=== PATIENT | female | born 1935 | race Caucasian/White ===

== ENCOUNTER → 2016-12-25 | Outpatient (CLI) | payer MEDICARE, BC ==
[2016-12-25 18:00] LABS: Blood Urea Nitrogen 15 mg/dL (7-17); Non-African American GFR(MDRD) >60 (>60 ml/min/1.73 sqM)
--- NOTE | 2016-12-26 07:58 | CT ---
EXAMINATION TYPE: CT chest w con DATE OF EXAM: 12/25/2016 6:58 PM COMPARISON: Prior chest CT October 19, 2014 HISTORY: Lung nodule. CT DLP: 1093.80 mGycm. Automated Exposure Control for Dose Reduction was Utilized. TECHNIQUE: CT scan of the thorax is performed following with IV Contrast, patient injected with 100 mL of Omnipaque 300. FINDINGS: LUNGS: Mild to minimal underlying emphysematous change is present. There is linear scarring and/or at electatic change in both lower lungs, right greater than left most pronounced around the periphery. S ubcentimeter scarlike opacity medially left lung base is unchanged from prior exam and thus presumed postinflammatory in etiology. No new suspicious parenchymal nodule or mass is present bilaterally. No pleural effusion or pneumothorax is seen. Tracheobronchial tree is patent MEDIASTINUM: There are no greater than 1 cm hilar or mediastinal lymph nodes. No pericardial effusi on is seen. Heart size is stable and upper limits of normal with mild to moderate left atrial and le ft ventricular dilatation. There is mild to moderate mixed plaque in visualized portion of the aorta. Coronary artery calcification is present which is noted marker for coronary artery disease. OTHER: There is exaggerated thoracic kyphosis with multilevel spurring in the spine. Please refer to same day CT urogram report for complete details in the upper abdomen. IMPRESSION: Stable subcentimeter scarlike opacity medially left lung base. No new suspicious nodule o r mass.
--- NOTE | 2016-12-26 08:08 | CT ---
EXAMINATION TYPE: CT urogram wo/w con DATE OF EXAM: 12/25/2016 6:58 PM HISTORY: Microscopic hematuria. CT DLP: 1093.80mGycm Automated Exposure Control for Dose Reduction was Utilized. CONTRAST: CT scan of the abdomen and pelvis is performed without oral and without and with IV Contrast, patient injected with 100 mL of Omnipaque 300. Urogram protocol with Three-D reconstructed images created on independent workstation and reviewed. COMPARISON: CT abdomen January 16, 2012. FINDINGS: KUB: Noncontrast images show possible 1 mm calculus lower pole level left kidney only seen well on co bernie image 70 series 8. Postcontrast images show symmetric cortical medullary uptake and excretion f rom both kidneys without evidence of concerning solid or cystic renal mass or hydronephrosis seen nathaniel aterally. Visualized portion of both ureters show no suspicious calculi or filling defect. Occasional pelvic phlebolith is seen. Urinary bladder shows satisfactory distention without suspicious intralum inal mass or wall thickening. LUNG BASES: CTs refer to same day CT chest report for complete details LIVER/GB: Liver is isodense to slightly hypodense relative to spleen consistent with mild diffuse fat ty infiltration PANCREAS: No significant abnormality is seen. SPLEEN: No significant abnormality is seen. ADRENALS: No significant abnormality is seen. KIDNEYS: No significant abnormality is seen. BOWEL: Small size hiatal hernia is present. Some eccentric wall thickening at level of rectal anal ve rge involving left and posterior aspect is seen on axial image 80 series 11 and axial image 70 series 19. Overall evaluation bowel is suboptimal secondary to lack of enteric contrast. There is no suspic ious small or large bowel dilatation. Slightly more prominence of fecal material in the distal colon is consistent with mild to moderate distal colonic fecal stasis. Clinical correlation advised. There are some scattered colonic diverticula most pronounced in the sigmoid colon. There is no CT evidence for acute diverticulitis. UTERUS/ADNEXA: Uterus is likely surgically absent as is not visualized. Slightly prominent cervical r emnant noted. LYMPH NODES: No greater than 1cm abdominal or pelvic lymph nodes are appreciated. OSSEOUS STRUCTURES: There is been posterior decompression in the lower lumbar spine with laminectomy defects and spinous process resection. There is slight grade 1 anterolisthesis of L4 on L5. Posterior interpedicular rods and screws at this level are identified. OTHER: There is mild calcified plaque of aorta extending into branch vessels. IMPRESSION: 1. Suspect single 1 mm nonobstructing calculus lower pole level left kidney otherwise no significant finding is seen to account for patient's symptoms. 2. Attention to rectal anal verge, neoplasm at this level cannot be excluded, correlation with direct digital rectal exam and/or direct visualization is advised.
== END | disposition home or self-care (01) ==
LOC: RADCTMAIN 17:22
PROVIDERS: ATTEND Internal Medicine
DX: N20.0 Calculus of kidney (principal); R91.1 Solitary pulmonary nodule
CPT/HCPCS: 82565; 84520; 71260; 74178; 36415; 74400; Q9967

== ENCOUNTER → 2017-01-16 | Outpatient (CLI) | payer MEDICARE, BC ==
--- NOTE | 2017-01-20 12:34 | FL ---
EXAMINATION TYPE: FL barium enema DATE OF EXAM: 01/16/2017 COMPARISON: Correlation to CT 12/25/2016 HISTORY: 81-year-old female with history of diverticulitis, complaining of bleeding. Total fluoroscopy time: 3 minutes 24 seconds. TECHNIQUE: A double contrast barium enema study is performed. FINDINGS: Social Work Specialist view of the abdomen shows overall non-obstructive bowel gas pattern without significant stool. Posterior lumbar fusion hardware is present with laminectomy change. Degenerative changes at the left greater than right hips. The exam is limited given redundancy of the sigmoid colon limiting thorough visualization. There is a lso further limitation as we were unable to successfully drain adequate barium from the colon. Multip le attempts were made in different positions and further attempts were made with the patient attempti ng colonic evacuation privately for up to 20 minutes. Prominent air and contrast remained throughout the colon despite these attempts and even prior to air administration. However, we note relative collapse of the mid to distal sigmoid following filling and attempted drain age. Due to these limitations, this exam is reviewed in conjunction with CT of 12/25/2016. Air administration to distend the mid to distal sigmoid continues to show prominent sigmoid redundanc y and overlap limiting visualization. There is diffuse colonic diverticulosis, greatest within the si gmoid colon. Given the dense retained barium within the colon, no suspicious filling defect is identi fied within the visualized portions. IMPRESSION: 1. This exam is reviewed in conjunction with CT of 12/25/2016 due to marked limitations. The initially instilled barium contrast failed to evacuate despite prolonged attempts. 2. Given prominent retained contrast and air (even prior to administration of air contrast) with rian apse of the mid to distal sigmoid, a partial obstruction at the level of the mid sigmoid is suggested . This level is not well seen due to sigmoid redundancy and overlap. Clinical correlation is recommen ded. 3. As no clear mass is seen on the CT of 12/25/2016, additional differential consideration includes ch ronic narrowing and stricture from chronic diverticulitis. Consider surgical consultation. 4. There is diffuse colonic diverticulosis, greatest in the sigmoid colon.
== END | disposition home or self-care (01) ==
LOC: RADFLMAIN 10:53
PROVIDERS: ATTEND Internal Medicine
DX: K57.30 Diverticulosis of large intestine without perforation or abscess without bleeding (principal)
CPT/HCPCS: 74270

== ENCOUNTER 2017-03-13 11:25 | Observation (INO) | payer MEDICARE, BC ==
[2017-03-13] MEDS ORDERED: ASPIRIN 81 MG CHEW PO STA (11:51)
[2017-03-13] MEDS ORDERED: NITROGLYCERIN OINT 1 INCH/GM PACKET TOPICAL STA (11:51)
--- NOTE | 2017-03-13 11:57 | ED ---
General Adult HPI - General Chief complaint: Chest Pain Stated complaint: Dr sent/ekg Time Seen by Provider: 03/13/17 11:45 Source: patient, RN notes reviewed Mode of arrival: wheelchair Limitations: no limitations - History of Present Illness Initial comments: This is a 81-year-old female with past medical history significant for high cholesterol and high blood pressure. Patient states over the last 2 weeks she keeps getting chest pressure and shortness of breath anytime she exerts herself started when she mowed the lawn and now every time she walks her dog she gets that. Patient went to see her primary medical care doctor Dr. Russell and he sent the patient to be evaluated for her heart. Patient states currently she still has a little bit of pressure in her chest. Patient states while lying in bed she has no shortness of breath. Patient denies any lightheadedness dizziness or near syncopal episode. Patient denies any abdominal pain patient denies nausea vomiting diarrhea. Patient denies any episodes of diaphoresis. Patient has had mitral valve regurgitation in the past Dr. Russell indicated to me that the murmur is much louder today than normal. - Related Data Home Medications Medication Instructions Recorded Confirmed Fish Oil/Dha/Epa [Fish Oil 1,200 1 cap PO DAILY 03/13/17 03/13/17 mg Fish Oil] Lisinopril [Prinivil] 10 mg PO DAILY 03/13/17 03/13/17 Multivitamins, Thera [Multivitamin 1 tab PO DAILY 03/13/17 03/13/17 (formulary)] Simvastatin [Zocor] 20 mg PO HS 03/13/17 03/13/17 Allergies Allergy/AdvReac Type Severity Reaction Status Date / Time No Known Allergies Allergy Verified 03/13/17 12:02 Review of Systems ROS Statement: Those systems with pertinent positive or pertinent negative responses have been documented in the HPI. ROS Other: All systems not noted in ROS Statement are negative. Past Medical History Past Medical History: Coronary Artery Disease (CAD), Hypertension History of Any Multi-Drug Resistant Organisms: None Reported Past Psychological History: No Psychological Hx Reported Smoking Status: Never smoker Past Alcohol Use History: None Reported Past Drug Use History: None Reported General Exam - General Exam Comments Initial Comments: GENERAL: Patient is well-developed and well-nourished. Patient is nontoxic and well- hydrated and is in mild distress. ENT: Neck is soft and supple. No significant lymphadenopathy is noted. Oropharynx is clear. Moist mucous membranes. Neck has full range of motion without eliciting any pain. EYES: The sclera were anicteric and conjunctiva were pink and moist. Extraocular movements were intact and pupils were equal round and reactive to light. Eyelids were unremarkable. PULMONARY: Unlabored respirations. Good breath sounds bilaterally. No audible rales rhonchi or wheezing was noted. CARDIOVASCULAR: There is a regular rate and rhythm with a 3/6 murmur. ABDOMEN: Soft and nontender with normal bowel sounds. No palpable organomegaly was noted. There is no palpable pulsatile mass. SKIN: Skin is clear with no lesions or rashes and otherwise unremarkable. NEUROLOGIC: Patient is alert and oriented x3. Cranial nerves II through XII are grossly intact. Motor and sensory are also intact. Normal speech, volume and content. Symmetrical smile. MUSCULOSKELETAL: Normal extremities with adequate strength and full range of motion. No lower extremity swelling or edema. No calf tenderness. LYMPHATICS: No significant lymphadenopathy is noted PSYCHIATRIC: Normal psychiatric evaluation. Normal interpersonal interactions appears functionally intact in deals appropriately with others. No signs of depression. No signs of anxiety. Limitations: no limitations Course Vital Signs 03/13/17 11:46 Temperature 97.5 F L Pulse Rate 83 Respiratory 20 Rate Blood Pressure 155/72 O2 Sat by Pulse 93 L Oximetry Medical Decision Making - Medical Decision Making EKG shows sinus rhythm at a rate of 79 bpm MO interval is 210 QRS is 84 Q-T is 372 QTC is 426 patient's EKG shows no ST segment elevation or depression or T- wave abdomen is noted. Chest x-ray showed no acute normalities. Dr. Russell wanted the patient admitted in 1 and a consult by cardiology also and an echo . I started the patient heparin I continue the heparin Nitropaste and aspirin on the floor. I wrote admitting orders and consult cardiology. - Lab Data Result diagrams: 03/13/17 12:00 03/13/17 12:00 Lab Results 03/13/17 03/13/17 03/13/17 Range/Units 12:00 12:00 12:00 WBC 7.4 (3.8-10.6) k/uL RBC 3.90 (3.80-5.40) m/uL Hgb 12.2 (11.4-16.0) gm/dL Hct 35.5 (34.0-46.0) % MCV 91.1 (80.0-100.0) fL MCH 31.2 (25.0-35.0) pg MCHC 34.3 (31.0-37.0) g/dL RDW 14.8 (11.5-15.5) % Plt Count 182 (150-450) k/uL Neutrophils % 61 % Lymphocytes % 19 % Monocytes % 8 % Eosinophils % 8 % Basophils % 1 % Neutrophils # 4.5 (1.3-7.7) k/uL Lymphocytes # 1.4 (1.0-4.8) k/uL Monocytes # 0.6 (0-1.0) k/uL Eosinophils # 0.6 (0-0.7) k/uL Basophils # 0.1 (0-0.2) k/uL PT (9.0-12.0) sec INR (<1.2) APTT (22.0-30.0) sec Sodium 142 (137-145) mmol/L Potassium 4.4 (3.5-5.1) mmol/L Chloride 107 (98-107) mmol/L Carbon Dioxide 25 (22-30) mmol/L Anion Gap 10 mmol/L BUN 16 (7-17) mg/dL Creatinine 0.78 (0.52-1.04) mg/dL Est GFR (MDRD) Af Amer >60 (>60 ml/min/1.73 sqM) Est GFR (MDRD) Non-Af >60 (>60 ml/min/1.73 sqM) Glucose 89 (74-99) mg/dL Calcium 9.1 (8.4-10.2) mg/dL Magnesium 2.0 (1.6-2.3) mg/dL Total Bilirubin 0.8 (0.2-1.3) mg/dL AST 24 (14-36) U/L ALT 38 (9-52) U/L Alkaline Phosphatase 54 (38-126) U/L Total Creatine Kinase 64 (30-135) U/L CK-MB (CK-2) 0.9 (0.0-2.4) ng/mL CK-MB (CK-2) Rel Index 1.4 Troponin I <0.012 (0.000-0.034) ng/mL Total Protein 7.1 (6.3-8.2) g/dL Albumin 4.4 (3.5-5.0) g/dL 03/13/17 Range/Units 12:00 WBC (3.8-10.6) k/uL RBC (3.80-5.40) m/uL Hgb (11.4-16.0) gm/dL Hct (34.0-46.0) % MCV (80.0-100.0) fL MCH (25.0-35.0) pg MCHC (31.0-37.0) g/dL RDW (11.5-15.5) % Plt Count (150-450) k/uL Neutrophils % % Lymphocytes % % Monocytes % % Eosinophils % % Basophils % % Neutrophils # (1.3-7.7) k/uL Lymphocytes # (1.0-4.8) k/uL Monocytes # (0-1.0) k/uL Eosinophils # (0-0.7) k/uL Basophils # (0-0.2) k/uL PT 10.7 (9.0-12.0) sec INR 1.1 (<1.2) APTT 25.2 (22.0-30.0) sec Sodium (137-145) mmol/L Potassium (3.5-5.1) mmol/L Chloride (98-107) mmol/L Carbon Dioxide (22-30) mmol/L Anion Gap mmol/L BUN (7-17) mg/dL Creatinine (0.52-1.04) mg/dL Est GFR (MDRD) Af Amer (>60 ml/min/1.73 sqM) Est GFR (MDRD) Non-Af (>60 ml/min/1.73 sqM) Glucose (74-99) mg/dL Calcium (8.4-10.2) mg/dL Magnesium (1.6-2.3) mg/dL Total Bilirubin (0.2-1.3) mg/dL AST (14-36) U/L ALT (9-52) U/L Alkaline Phosphatase (38-126) U/L Total Creatine Kinase (30-135) U/L CK-MB (CK-2) (0.0-2.4) ng/mL CK-MB (CK-2) Rel Index Troponin I (0.000-0.034) ng/mL Total Protein (6.3-8.2) g/dL Albumin (3.5-5.0) g/dL Critical Care Time Critical Care Time: Yes Total Critical Care Time: 35 Disposition Clinical Impression: Unstable angina pectoris Disposition: ADMITTED IP TO THIS HOSP Referrals: Asha Russell MD [Primary Care Provider] - 1-2 days Time of Disposition: 13:11
[2017-03-13 12:15] LABS: Basophils # (A) 0.1 k/uL (0-0.2); Basophils % (A) 1 %; CH 31.3; CHCM 34.5; Eosinophils # (A) 0.6 k/uL (0-0.7); Eosinophils % (A) 8 %; HCT 35.5 % (34.0-46.0); HDW 3.06; HGB 12.2 gm/dL (11.4-16.0); Luc # (Auto) 0.24; Luc % (Auto) 3; Lymphocytes # (A) 1.4 k/uL (1.0-4.8); Lymphocytes % (A) 19 %; MCH 31.2 pg (25.0-35.0); MCHC 34.3 g/dL (31.0-37.0); MCV 91.1 fL (80.0-100.0); Mean Platelet Volume 7.4; Monocytes # (A) 0.6 k/uL (0-1.0); Monocytes % (A) 8 %; Neutrophils # (A) 4.5 k/uL (1.3-7.7); Neutrophils % (A) 61 %; RDW 14.8 % (11.5-15.5); WBC 7.4 k/uL (3.8-10.6); WBC (Perox) 7.81
--- NOTE | 2017-03-13 12:18 | XR ---
EXAMINATION TYPE: XR chest 2V DATE OF EXAM: 03/13/2017 COMPARISON: Prior chest x-ray 12/08/2014, chest CT 12/25/2016 HISTORY: Shortness of breath and chest pain TECHNIQUE: Frontal and lateral views of the chest are obtained. FINDINGS: There are overlying cardiac leads. The patient is rotated. Cardiomediastinal silhouette, p ulmonary vascularity and torie are stable. Strand-like interstitial densities again noted greater at t he right lung base. Suspect mitral annular calcification is present. Pulmonary vascularity and torie n ot significantly changed. IMPRESSION: Chronic scarring. Heart size may be accentuated by rotation.
[2017-03-13 12:26] LABS: INR 1.1 (<1.2); Partial Thromboplastin Time 25.2 sec (22.0-30.0); Prothrombin Time 10.7 sec (9.0-12.0)
[2017-03-13 12:37] LABS: ALT 38 U/L (9-52); AST 24 U/L (14-36); Alkaline Phosphatase 54 U/L (38-126); Anion Gap 10 mmol/L; Blood Urea Nitrogen 16 mg/dL (7-17); Calcium 9.1 mg/dL (8.4-10.2); Carbon Dioxide 25 mmol/L (22-30); Chloride 107 mmol/L (98-107); Glucose 89 mg/dL (74-99); Non-African American GFR(MDRD) >60 (>60 ml/min/1.73 sqM); Potassium 4.4 mmol/L (3.5-5.1); Sodium 142 mmol/L (137-145); Total Bilirubin 0.8 mg/dL (0.2-1.3); Total Protein 7.1 g/dL (6.3-8.2)
[2017-03-13 12:46] LABS: Creatine Kinase 64 U/L (30-135)
[2017-03-13 12:58] LABS: Creatine Kinase MB 0.9 ng/mL (0.0-2.4); Troponin I <0.012 ng/mL (0.000-0.034)
[2017-03-13] MEDS ORDERED: HEPARIN SODIUM,PORCINE 5,000 UNIT/ML 1 ML VIAL IV ONE (13:09)
[2017-03-13] MEDS ORDERED: NITROGLYCERIN SL TABS 0.4 MG TAB SUBLINGUAL PRN (13:11)
[2017-03-13] MEDS ORDERED: HEPARIN SODIUM,PORCINE/D5W PMX 25,000 UNIT in DEXTROSE/WATER 1 500ML.BAG IV SCH (13:15)
[2017-03-13] MEDS: NITROGLYCERIN OINT 1 INCH/GM PACKET TOPICAL SCH (18:59)
[2017-03-13 19:03] LABS: Creatine Kinase 55 U/L (30-135)
[2017-03-13 19:16] LABS: Creatine Kinase MB 0.8 ng/mL (0.0-2.4); Troponin I <0.012 ng/mL (0.000-0.034)
[2017-03-14 01:00] LABS: Creatine Kinase 46 U/L (30-135)
[2017-03-14 01:13] LABS: Creatine Kinase MB 0.6 ng/mL (0.0-2.4); Troponin I <0.012 ng/mL (0.000-0.034)
[2017-03-14] MEDS: NITROGLYCERIN OINT 1 INCH/GM PACKET TOPICAL SCH ×3 (02:03→13:40)
[2017-03-14 08:04] LABS: Cholesterol 130 mg/dL (<200); HDL Cholesterol 37 mg/dL (40-60)
[2017-03-14 08:13] VITALS: RESP 18
[2017-03-14] MEDS ORDERED: ASPIRIN 325 MG TAB PO SCH (09:00)
--- NOTE | 2017-03-14 11:30 | ECHOF ---
Referral Reason:chest pain MEASUREMENTS -------- HEIGHT: 162.6 cm WEIGHT: 69.8 kg BP: 140/73 RVIDd: 3.1 cm (< 3.3) IVSd: 1.2 cm (0.6 - 1.1) LVIDd: 4.6 cm (3.9 - 5.3) LVPWd: 1.2 cm (0.6 - 1.1) IVSs: 1.6 cm LVIDs: 3.0 cm LVPWs: 1.8 cm LA Diam: 4.1 cm (2.7 - 3.8) LAESV Index (A-L): 48.87 ml/m Ao Diam: 3.1 cm (2.0 - 3.7) AV Cusp: 2.2 cm (1.5 - 2.6) MV EXCURSION: 8.785 mm (> 18.000) MV EF SLOPE: 76 mm/s (70 - 150) EPSS: 0.6 cm MV E Kenney: 1.80 m/s MV DecT: 232 ms MV A Kenney: 1.12 m/s MV E/A Ratio: 1.61 RAP: 5.00 mmHg RVSP: 47.95 mmHg FINDINGS -------- Sinus rhythm. This was a technically good study. The left ventricular size is normal. There is borderline concentric left ventricular hypertrophy. Overall left ventricular systolic function is normal with, an EF between 60 - 65 %. The right ventricle is normal in size and function. LA is severely dilated >40 ml/m2 The right atrium is normal in size. Aortic valve is trileaflet and is mildly thickened. The mitral valve leaflets are moderately thickened. Moderate mitral annular calcification present. Severe mitral regurgitation is present. The peak and mean MV gradients are 17.23mmHg 5.28mmHg as measured by doppler. Severe prolapse of the posterior mitral valve leaflet. Mild tricuspid regurgitation present. There is moderate pulmonary hypertension. The right ventricular systolic pressure, as measured by Doppler, is 47.95mmHg. Moderate pulmonic regurgitation. The aortic root size is normal. Normal inferior vena cava with normal inspiratory collapse consistent with estimated right atrial pressure of 5 mmHg. There is no pericardial effusion. CONCLUSIONS -------- 1. Sinus rhythm. 2. The mitral valve leaflets are moderately thickened. 3. Moderate mitral annular calcification present. 4. The peak and mean MV gradients are 17.23mmHg 5.28mmHg as measured by doppler. 5. Severe prolapse of the posterior mitral valve leaflet. 6. Mild tricuspid regurgitation present. 7. There is moderate pulmonary hypertension. 8. The right ventricular systolic pressure, as measured by Doppler, is 47.95mmHg. 9. Moderate pulmonic regurgitation. 10. The aortic root size is normal. 11. Normal inferior vena cava with normal inspiratory collapse consistent with estimated right atrial pressure of 5 mmHg. 12. This was a technically good study. 13. There is no pericardial effusion. 14. The left ventricular size is normal. 15. There is borderline concentric left ventricular hypertrophy. 16. Overall left ventricular systolic function is normal with, an EF between 60 - 65 %. 17. The right ventricle is normal in size and function. 18. LA is severely dilated >40 ml/m2 19. The right atrium is normal in size. 20. Aortic valve is trileaflet and is mildly thickened. [employer] CLERK: Roma Melton RDCS
[2017-03-14 12:07] VITALS: BP 130/69; PULSE 83; TEMP 97.4
[2017-03-14] MEDS ORDERED: PROPRANOLOL 10 MG TAB PO SCH (13:00)
[2017-03-14] MEDS ORDERED: LISINOPRIL 10 MG TAB PO SCH (13:00)
--- NOTE | 2017-03-14 13:09 | P.CRDCN ---
History of Present Illness Consult date: 03/14/17 History of present illness: This is a 81-year-old female patient of Dr. Russell. She presented to his office yesterday with complaints of chest heaviness off and on for the past two weeks. She states she was up [place] at the [facility] and decided to cut the grass. While she was cutting the grass she started having what she describes as chest heaviness that radiated up into her neck. The pain subsided when she sat down to rest. The pain came back intermittently while she was exerting herself over the previous 2 weeks. She states there are times that she would exert herself and she felt fine and other times she would have pain. Her home medications include Zocor 20 mg and lisinopril 10 mg. Her last stress test was over a year ago. On examination today she is seen resting comfortably in bed in no acute distress. She denies nausea, vomiting, dizziness, palpitations, chest pain or shortness of breath at this time. She has a significant holosystolic murmur auscultated at all listening points on the chest as well as through the left upper back. Per the notes this is a worsening murmur for the patient. Troponins are negative 3, chest x-ray shows chronic scarring with strand-like interstitial densities at the right lung base and mitral calcification. Review of Systems REVIEW OF SYSTEMS: Patient denies any chest discomfort. No shortness of breath. No diaphoresis. He denies headache, dizziness, blurred vision, double vision. No dyspnea on exertion. Patient denies any stomach discomfort. No nausea, vomiting. No hematochezia. No hematemesis. Denies any black stools or blood in his stools. No syncope. No palpitations. No cough. No recent fever or chills. Denies dysuria or hematuria. No muscle weakness or numbness. 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, kidney stone,diverticulitis,artritis knees, cataracts nathaniel eyes, stress incont of urine, rls, shingles 2016 lite case History of Any Multi-Drug Resistant Organisms: None Reported Past Surgical History: Appendectomy, Back Surgery, Hysterectomy, Joint Replacement Additional Past Surgical History / Comment(s): c sections x3, skin cancer removed rt arm, several colonoscopies, nathaniel knee replacments Past Anesthesia/Blood Transfusion Reactions: Motion Sickness Smoking Status: Never smoker - Past Family History Father Family Medical History: Rheumatoid Arthritis (RA) Mother Family Medical History: Pneumonia Additional Family Medical History / Comment(s): at age 90 fell broke hip while recuperating she developed pne and from complications of that. Medications and Allergies Home Medications Medication Instructions Recorded Confirmed Type Fish Oil/Dha/Epa [Fish Oil 1,200 1 cap PO DAILY 03/13/17 03/13/17 History mg Fish Oil] Lisinopril [Prinivil] 10 mg PO DAILY 03/13/17 03/13/17 History Multivitamins, Thera [Multivitamin 1 tab PO DAILY 03/13/17 03/13/17 History (formulary)] Simvastatin [Zocor] 20 mg PO HS 03/13/17 03/13/17 History Allergies Allergy/AdvReac Type Severity Reaction Status Date / Time No Known Allergies Allergy Verified 03/13/17 12:02 Physical Exam Vitals: Vital Signs Temp Pulse Pulse Resp BP BP Pulse Ox 03/14/17 08:00 98.0 F 88 18 140/73 92 L 03/14/17 04:00 98.0 F 84 16 125/64 93 L 03/14/17 00:00 78 16 03/13/17 23:14 98.2 F 75 16 101/51 94 L 03/13/17 20:00 80 16 03/13/17 18:24 98.6 F 73 16 118/58 94 L 03/13/17 18:00 98.0 F 74 20 110/68 98 03/13/17 16:00 78 18 105/53 95 03/13/17 15:00 97.8 F 74 20 109/58 96 03/13/17 14:00 97.3 F L 73 20 101/56 97 03/13/17 13:00 75 18 106/54 96 03/13/17 11:46 97.5 F L 83 20 155/72 93 L Intake and Output 03/13/17 03/14/17 03/14/17 22:59 06:59 14:59 Intake Total 152.864 Balance 152.864 Intake: Intake, IV Titration 152.864 Amount Heparin Sodium,Porcine/ 152.864 D5w Pmx 25,000 unit In Dextrose/Water 1 500ml. bag @ 12 UNITS/KG/HR 16. 32 mls/hr IV .Q24H [facility] Rx #:[id number] Other: Voiding Method Toilet Toilet # Voids 1 1 Weight 70 kg 70 kg GENERAL: This is a 81-year-old female in no apparent distress at the time of my examination. HEENT: Head is atraumatic, normocephalic. Pupils are equal, round. Sclerae anicteric. Conjunctivae are clear. Mucous membranes of the mouth are moist. Neck is supple. There is no jugular venous distention. No carotid bruit is heard. No murmur auscultated. LUNGS: Clear to auscultation no wheezes, rales or rhonchi. No chest wall tenderness is noted on palpation or with deep breathing. HEART: Regular rate and rhythm with holosystolic murmur heard primarily at the apex with conduction to the left axilla. Murmur is heard at all listening points on the chest and the left upper back. No rubs or gallops. S1 and S2 heard. ABDOMEN: Soft, nontender. Bowel sounds are heard. No organomegaly noted. EXTREMITIES: 2+ peripheral pulses with no evidence of peripheral edema and no calf tenderness noted. NEUROLOGIC: Patient is awake, alert and oriented x3. Results 03/13/17 12:00 03/13/17 12:00 Cardiac Enzymes 03/13/17 03/13/17 03/13/17 Range/Units 12:00 12:00 18:23 AST 24 (14-36) U/L CK-MB (CK-2) 0.9 0.8 (0.0-2.4) ng/mL Troponin I <0.012 <0.012 (0.000-0.034) ng/mL 03/13/17 Range/Units 23:55 AST (14-36) U/L CK-MB (CK-2) 0.6 (0.0-2.4) ng/mL Troponin I <0.012 (0.000-0.034) ng/mL Coagulation 03/13/17 03/13/17 03/14/17 Range/Units 12:00 21:32 06:27 PT 10.7 (9.0-12.0) sec APTT 25.2 32.2 H 39.5 H (22.0-30.0) sec Lipids 03/14/17 Range/Units 06:27 Triglycerides 139 (<150) mg/dL Cholesterol 130 (<200) mg/dL HDL Cholesterol 37 L (40-60) mg/dL CBC 03/13/17 Range/Units 12:00 WBC 7.4 (3.8-10.6) k/uL RBC 3.90 (3.80-5.40) m/uL Hgb 12.2 (11.4-16.0) gm/dL Hct 35.5 (34.0-46.0) % Plt Count 182 (150-450) k/uL Comprehensive Metabolic Panel 03/13/17 Range/Units 12:00 Sodium 142 (137-145) mmol/L Potassium 4.4 (3.5-5.1) mmol/L Chloride 107 (98-107) mmol/L Carbon Dioxide 25 (22-30) mmol/L BUN 16 (7-17) mg/dL Creatinine 0.78 (0.52-1.04) mg/dL Glucose 89 (74-99) mg/dL Calcium 9.1 (8.4-10.2) mg/dL AST 24 (14-36) U/L ALT 38 (9-52) U/L Alkaline Phosphatase 54 (38-126) U/L Total Protein 7.1 (6.3-8.2) g/dL Albumin 4.4 (3.5-5.0) g/dL Current Medications Generic Name Dose Route Start Last Admin Trade Name Freq PRN Reason Stop Dose Admin Aspirin 325 mg 03/14/17 09:00 Aspirin PO DAILY [facility] Heparin Sodium/Dextrose 25,000 500 mls @ 16.32 mls/hr 03/13/17 13:15 22:48 unit/ IV Solution IV 15.07 units/kg/hr .Q24H [facility] 20.52 mls/hr Protocol Titration 12 UNITS/KG/HR Nitroglycerin 1 inch 03/13/17 18:00 03/14/17 02:03 Nitro-Bid Oint TOPICAL Not Given Q6HR [facility] Nitroglycerin 0.4 mg 03/13/17 13:11 Nitrostat SUBLINGUAL Q5M PRN Chest Pain Intake and Output 03/13/17 03/14/17 03/14/17 22:59 06:59 14:59 Intake Total 152.864 Balance 152.864 Intake: Intake, IV Titration 152.864 Amount Heparin Sodium,Porcine/ 152.864 D5w Pmx 25,000 unit In Dextrose/Water 1 500ml. bag @ 12 UNITS/KG/HR 16. 32 mls/hr IV .Q24H [facility] Rx #:[id number] Other: Voiding Method Toilet Toilet # Voids 1 1 Weight 70 kg 70 kg 03/13/17 12:00 03/13/17 12:00 - Imaging and Cardiology Echo: report reviewed (Mitral valve leaflets moderately significant, moderate mitral calcification, gradients 17.23 mmHg measured by Doppler, severe prolapse of the posterior mitral valve leaflet, mild tricuspid regurg, moderate pulmonary hypertension, right ventricular systolic pressure 47.95 mmHg, moderate pulmonic regurg, borderline left ventricular hypertrophy, left ventricular function preserved with an ejection fraction of 60-65%, left atrium severely dilated greater than 40, aortic valve is trileaflet and mildly thickened.) - EKG Interpretation EKG: normal QRS, normal ST/T, no acute changes Assessment and Plan Plan: ASSESSMENT 1. Mitral valve prolapse with moderate to severe regurgitation, symptomatic. PLAN Patient should continue taking her lisinopril 10 mg by mouth daily. We will also add Inderal 30 mg by mouth twice a day to decrease afterload. The patient will require a VIVEK as well as a cardiac catheterization to determine exact degree of prolapse. She will likely be a candidate for surgery. Dr. Telles has discussed this plan with the patient and these tests may be set up and performed as an outpatient. A follow-up appt will be made for the next 1 week. Nurse Practitioner note has been reviewed, I agree with a documented findings and plan of care. Patient was seen and examined.
--- NOTE | 2017-03-15 09:55 | HP ---
CHIEF COMPLAINT: Chest pain. HISTORY OF PRESENT ILLNESS: This 81-year-old female with past medical history significant for hypertension and hyperlipidemia presented to the hospital with new onset left-sided chest tightness. Patient said over the last 2 weeks she has been experiencing left-sided chest tightness every time she attempts to do any kind of exertion and seems like her ability to walk was limited due to that. Patient tried to limit her activities due to that reason, but at this time the chest pain happened after she was trying to do her lawn outdoors and the pain continued to happen for almost 24 hours and presented to the emergency department. EKG showed no significant ST or T-wave abnormality. Troponin was negative. Patient was started on heparin drip given her presentation of tightness and admitted to observation. Patient reported that the tightness is located in the left chest, radiating to her left arm but not to her left neck. Denied any nausea, dizziness or loss of consciousness. Said that the tightness is not inducible by stretching or lying down and does not get better with over- the-counter drugs, only when she gets some rest. REVIEW OF SYSTEMS: All 14 systems reviewed and negative except as above. PAST MEDICAL AND SURGICAL HISTORY: 1. Hypertension. 2. Hyperlipidemia. 3. Bilateral knee surgery. 4. Bilateral shoulder surgery. 5. Appendectomy. 6. Cholecystectomy. 7. Three C-sections. SOCIAL HISTORY: Patient denies tobacco, alcohol or drug abuse. FAMILY HISTORY: Patient denies any cardiac history in her family. Home medications reviewed on reconciled on the chart. PHYSICAL EXAMINATION: Vital signs are reviewed and stable. Lungs clear to auscultation bilaterally. HEART: Positive for holosystolic murmur on the bilateral sternal area. LOWER EXTREMITY: No edema. PSYCH: Alert and oriented x3. In relaxed mood and affect. ( ). NEURO: Cranial nerves 2 through 12 are intact. Normal reflexes and sensation. ABDOMEN: Soft, nontender. Bowel sounds in all four quadrants. IMAGING AND LABS: CBC normal, chemistry normal, troponin normal, EKG as mentioned above. Chest x-ray normal. ASSESSMENT AND PLAN: 1. Chest pain, exertional. Improvement with rest and with the presence of the holosystolic murmur, I would like to obtain 2D echo, likely representing severe aortic stenosis creating new symptoms. Patient understands the treatment plan and would like to follow up with Cardiology recommendation while on the floor and Cardiology recommendation regarding testing outpatient as patient requested to go home and do not stay in the hospital over the weekend and she will follow up with Dr. Luna, outpatient as he sees her for his history of pacemaker. The patient will be maintained on a heparin drip and will be seen by Cardiology and will continue ( ) indication per their recommendation. 2. Hypertension, under fair control. 3 Hyperlipidemia, check the lipid panel. 4. Discharge per Cardiology recommendation. GUILLE
== END 2017-03-14 14:37 | disposition home or self-care (01) ==
LOC: EC 11:25 → 3OBS 13:11
PROVIDERS: ADMIT Internal Medicine; ATTEND Internal Medicine
DX: R07.89 Other chest pain (principal); I08.1 Rheumatic disorders of both mitral and tricuspid valves; I25.10 Atherosclerotic heart disease of native coronary artery without angina pectoris; I10 Essential (primary) hypertension; E78.5 Hyperlipidemia, unspecified; M19.90 Unspecified osteoarthritis, unspecified site; G25.81 Restless legs syndrome; Z79.899 Other long term (current) drug therapy; Z87.442 Personal history of urinary calculi; Z85.828 Personal history of other malignant neoplasm of skin
CPT/HCPCS: 36415; 71020; 80053; 80061; 82550; 82553; 83735; 84484; 85025; 85610; 85730; 93005; 93306; 96365; 96366; 96376; 99291

== ENCOUNTER 2017-03-19 10:15 | Day surgery (SDC) | payer MEDICARE, BC ==
[2017-03-17 13:40] VITALS: BMI 25.7
[~2017-03-19 10:15] MED LIST: ALPRAZolam 0.25 MG TAB PO PRN; ASPIRIN 325 MG TAB PO ONE; ATORVASTATIN 80 MG TAB PO ONE; SODIUM CHLORIDE 0.9% 1,000 ML in EMPTY BAG 1 BAG IV ONE
[2017-03-19 10:35] VITALS: TEMP 98.4
[2017-03-19] MEDS ORDERED: fentaNYL (PF) 50 MCG/ML 2 ML AMP IV ONE ×2 (12:11→12:14)
[2017-03-19] MEDS: BENZOCAINE SPRAY 100 APPLIC/CAN MUCOUS MEM ONE ×2 (12:11→12:15)
[2017-03-19] MEDS ORDERED: MIDAZOLAM 2 MG/2 ML VIAL IV ONE (12:11)
[2017-03-19] MEDS: MIDAZOLAM 2 MG/2 ML VIAL IV ONE ×2 (12:14→12:15)
[2017-03-19] MEDS ORDERED: LIDOCAINE 2% INJ 20 MG/ML SQ ONE (12:53)
[2017-03-19 13:22] LABS: Site FA; Site RA
[2017-03-19 13:23] LABS: Site PA
[2017-03-19] MEDS ORDERED: IOHEXOL 350 MG/ML 125ML BOTTLE INJ ONE (13:23)
[2017-03-19] MEDS ORDERED: RX INFO: IV CONTRAST WAS GIVEN 1 EACH MISC MISCELLANE PRN (13:39)
[2017-03-19] MEDS ORDERED: SODIUM CHLORIDE 0.9% 1,000 ML IV SCH (13:45)
[2017-03-19 14:03] VITALS: RESP 16
--- NOTE | 2017-03-19 15:00 | ECHOT ---
Mrs. Melendez recently has been having symptoms of exertional shortness of breath and chest discomfort. Patient was found to have a severe mitral regurgitation. In view of that, the patient was advised transesophageal echocardiogram. PROCEDURE: Patient was given intravenous sedation with Versed and fentanyl and transesophageal echocardiogram as performed without any complications. Left ventricular chamber is normal in size with normal left ventricular systolic function. There is a severe degree of prolapse of the posterior mitral leaflet involving the P1 and P2 segment, P2 segment appears to be flailed. There is evidence of severe eccentric mitral regurgitation with reversal of flow noted in the pulmonary vein. Left atrium is moderately dilated. There is no evidence of thrombus in left atrium or atrial appendage. The right ventricle, right atrial chamber are normal in size. There is mild to moderate degree of tricuspid regurgitation noted. Intra-atrial septum is intact. There is no evidence of any PFO. Mild atherosclerotic plaque noted in the distal thoracic aorta. FINAL IMPRESSION: 1. There is evidence of severe eccentric mitral regurgitation with severe prolapse of the P1 and P2 segment of the posterior mitral leaflet. The P2 segment appears to be flail with ruptured chordae ( ). 2. Left ventricular systolic function is normal. 3. Left atrium is moderately enlarged. 4. There is reversal of flow noted in the pulmonary vein. Mild to moderate tricuspid regurgitation is noted. 5. There is mild atherosclerotic plaque noted in the descending thoracic aorta. MTDD
[2017-03-19 16:24] VITALS: BP 113/58; PULSE 68
[2017-03-19] MEDS ORDERED: PROPRANOLOL 10 MG TAB PO SCH (21:00)
--- NOTE | 2017-03-20 08:46 | PCN ---
Mrs. Melendez is an 81-year-old female who was recently seen in the hospital with symptoms of exertional shortness of breath and chest discomfort. Patient was found to have a loud murmur or mitral regurgitation and so patient underwent transesophageal echocardiogram and cardiac catheterization today. PROCEDURE: The right groin was prepped and draped in the usual manner and right femoral artery and vein were entered using Seldinger technique and right and left heart catheterization and left ventriculography was performed. The patient tolerated the procedure well. Good Hemostasis was achieved with use of Angio-Seal. SEDATION: Moderate sedation, 35 minutes. HEMODYNAMICS: Right atrial pressure is 6 to 8 mmHg. Right ventricular systolic pressure is 55/8 to 10 mmHg. Pulmonary artery systolic pressure was 55/20 mmHg and pulmonary capillary wedge pressure was 16 to 20 mmHg with V-wave of about 30 mmHg. Cardiac output was 3.7 L by thermodilution and 4.09 with Patience cardiac output. Left ventricular end-diastolic pressure was 20 to 24 mmHg prior to angiography. No gradient is noted across the aortic valve. SELECTIVE CORONARY ANGIOGRAPHY: Left main coronary artery is normal and patent. The LAD is a good caliber blood vessel and gives rise to small size diagonal branch. The mid-LAD has 30% stenosis. Circumflex coronary artery is a good caliber blood vessel and gives rise to two good sized obtuse marginal branches. The circumflex coronary artery and its branches are normal. Right coronary artery is a relatively small caliber blood vessel and gives rise to small sized PDA branch and it is normal. Left ventriculography reveals normal left ventricular systolic function and severe mitral regurgitation. FINAL IMPRESSION: this study reveals mild disease in the mid-left anterior descending, about 30%. Circumflex and right coronary arteries are normal. Left ventricular ejection fraction is 55 to 60% that is severe mitral regurgitation noted. There is a mild to moderate degree of pulmonary hypertension. RECOMMENDATIONS: We will get surgical evaluation for mitral valve repair. [facility]
[2017-03-20] MEDS ORDERED: LISINOPRIL 10 MG TAB PO SCH (09:00)
[2017-03-20] MEDS ORDERED: ASPIRIN 325 MG TAB PO SCH (09:00)
[2017-03-20] MEDS ORDERED: NON-FORMULARY DRUG (Fish Oil/Dha/Epa [Fish Oil 1,200 Mg Fish Oil] 1 CAP) PO SCH (09:00)
[2017-03-20] MEDS ORDERED: MULTIVITAMINS, THERA 1 EACH TAB PO SCH (12:00)
[2017-03-20] MEDS ORDERED: ATORVASTATIN 10 MG TAB PO SCH (21:00)
== END 2017-03-19 18:42 | disposition home or self-care (01) ==
LOC: CATHCVL 10:15
PROVIDERS: ATTEND Internal Medicine Cardiovascular Disease
DX: I25.10 Atherosclerotic heart disease of native coronary artery without angina pectoris (principal); I10 Essential (primary) hypertension; I34.0 Nonrheumatic mitral (valve) insufficiency; I70.0 Atherosclerosis of aorta; I34.1 Nonrheumatic mitral (valve) prolapse; Z79.899 Other long term (current) drug therapy
CPT/HCPCS: 82810; 85018; 93312; 93320; 93325; 93460

== ENCOUNTER → 2020-12-12 | Outpatient (CLI) | payer MEDICARE, BC ==
--- NOTE | 2020-12-12 14:56 | CT ---
EXAMINATION TYPE: CT abdomen pelvis wo con DATE OF EXAM: 12/12/2020 COMPARISON: 12/25/2016 HISTORY: abnormal labs for kidney function CT DLP: 817 mGycm Examination of the solid and hollow viscera is limited given the lack of contrast. FINDINGS: LUNG BASES: No evidence for nodule. No evidence for infiltrate. LIVER/GB: The gallbladder is unremarkable. No space-occupying hepatic lesion. PANCREAS: No pancreatic mass identified. No inflammatory process seen. SPLEEN: No evidence for splenomegaly. No intrasplenic lesions seen. ADRENALS: No adrenal nodules identified. No evidence for thickening. KIDNEYS: 2 mm nonobstructing calculus mid pole right kidney. One or 2 subcentimeter hypoattenuating l esions right kidney may reflect small cysts of appropriately characterized on this study. No hydronep hrosis. BOWEL: Large fecal burden throughout the colon. Transition zone noted at the level of the sigmoid col on or the colon proximally measures 9.2 cm and at the transition zone 1.6 cm. Underlying neoplasm or stricture is not excluded. Small bowel is of normal caliber. No evidence for abscess or free air. Sma ll sliding-type hiatal hernia. Lymph nodes: No evidence for adenopathy greater than 1 cm. Abdominal aorta: Atheromatous changes seen. No evidence for aneurysm. Genital organs: No significant abnormality. Other: Postoperative changes lumbar spine. IMPRESSION: 1. Large fecal burden throughout the colon. Transition zone noted at the level of the sigmoid colon or the colon proximally measures 9.2 cm and at the transition zone 1.6 cm. Underlying neoplasm or str icture is not excluded. Direct visualization is advised. 2. Nonobstructing calculus right kidney.
== END | disposition home or self-care (01) ==
LOC: RADCTMAIN 14:17
PROVIDERS: ATTEND Urology
DX: N20.0 Calculus of kidney (principal)
CPT/HCPCS: 74176